=== PATIENT | female | born 1950 | race African-American/Black ===

== ENCOUNTER → 2017-04-26 17:24 | Outpatient (CLI) | payer BC ==
[2011-09-07 10:48] VITALS: BMI 24.4
== END | disposition home or self-care (01) ==
LOC: D.MAMMO 09:00
DX: Z12.31 Encounter for screening mammogram for malignant neoplasm of breast (principal)

== ENCOUNTER → 2018-06-20 15:49 | Outpatient (CLI) | payer MEDICARE ==
[2011-09-07 10:48] VITALS: BMI 24.4
== END | disposition home or self-care (01) ==
LOC: D.MAMMO 05-29 09:45
PROVIDERS: ATTEND Family Medicine
DX: Z12.31 Encounter for screening mammogram for malignant neoplasm of breast (principal)